=== PATIENT | male | born 1960 | race African-American/Black ===

== ENCOUNTER 2018-04-07 13:09 | Inpatient (IN) ==
[2018-04-07 13:56] LABS: Basophils % 0.3 % (0.0-0.8); Eosinophils % 0.3 % (0.00-10.9); Hematocrit 48.7 VOL% (42.0-52.0); Hemoglobin 16.2 GM/DL (14.0-18.0); Immature Granulocytes % 0.2 %; Immature Granulocytes Absolute 0.01 #; Lymphocytes # 1.8 10*3/uL (1.4-4.0); Lymphocytes % 29.8 % (21.2-54.2); Mean Corpuscular HGB Conc 33.3 GM/DL (32-36); Mean Corpuscular Hemoglobin 30 PG (27-34); Mean Corpuscular Volume 89.4 FL (87-102); Mean Platelet Volume 11.7 FL (9.6-12.0); Monocytes # 0.6 10*3/uL (0.11-0.8); Monocytes % 9.4 % (1.7-12.7); Neutrophils # 3.5 10*3/uL (1.4-7.4); Platelet Count 178 T/CUMM (130-400); Red Blood Count 5.45 MC/CUMM (3.8-5.5); Red Cell Distribution Width 13.8 % (9.3-17.3); White Blood Count 5.9 T/CUMM (4-12)
[2018-04-07 13:57] LABS: INR 0.9; Partial Thromboplastin Time 23.1 SECS (0-40)
[2018-04-07 14:08] LABS: Albumin 4.1 G/DL (3.4-5.0); Bilirubin,Total 0.9 MG/DL (0.2-1.0); Calcium 9.2 MG/DL (8.5-10.1); Osmolality,Calculated 283.4 MOS/KG (273-304); Potassium 3.7 MMOL/L (3.5-5.1); Total Protein 7.5 G/DL (6.4-8.3)
[2018-04-07 15:40] LABS: Barbiturates Screen,Urine Negative (Negative); Benzodiazepines Screen,Urine Negative (Negative); Cannabinoid Screen,Urine Negative (Negative); Opiate Screen,Urine Negative (Negative); Phencyclidine Screen,Urine Negative (Negative)
[2018-04-07 15:41] LABS: Amorphous Crystals,Urine Occasional /HPF (Few); Apearance,Urine CLOUDY (Clear); Bilirubin,Urine Negative (Negative); Blood, Urine Negative (Negative); Glucose,Urine (UA) Negative (Negative); Ketones,Urine Negative (Negative); Mucus,Urine Occasional /LPF (Occasional); Nitrite,Urine Negative (Negative); Protein,Urine Negative; RBC,Urine 2 /HPF (0-4); Squamous Epithelial Cell,Urine Occasional /HPF (0-10); Urine Color Yellow (Yellow); Urine Specific Gravity 1.017 (1.001-1.035); Urine Urobilinogen < 2.0 EU/DL (0.2-1.0); WBC,Urine 9 /HPF (0-6)
[2018-04-07] MEDS ORDERED: LABETALOL 100 MG/20 ML VIAL IV PRN (16:53)
[2018-04-07] MEDS ORDERED: ONDANSETRON 4 MG/2 ML VIAL IV PRN (16:53)
[2018-04-07] MEDS ORDERED: ACETAMINOPHEN 325 MG TABLET PO PRN (16:53)
[2018-04-07] MEDS ORDERED: DEXTROSE 50% 25 GM/50 ML VIAL IV PRN (16:58)
[2018-04-07] MEDS ORDERED: GLUCAGON 1 MG VIAL IM PRN (16:58)
[2018-04-07] MEDS ORDERED: amLODIPine 5 MG TABLET PO STA (17:03)
[2018-04-07] MEDS ORDERED: NICOTINE 7 MG/24 HR PATCH TRANSDERM PRN (17:24)
[2018-04-07] MEDS: SODIUM CHLORIDE 0.9% 1,000 ML IV SCH (20:38)
[2018-04-07] MEDS: ROSUVASTATIN 20 MG TABLET PO SCH (21:25)
[2018-04-07] MEDS: ENOXAPARIN 40 MG/0.4 ML SYRINGE SUBCUT SCH (21:25)
[2018-04-07] MEDS: INSULIN REGULAR 100 UNIT/ML SUBCUT SCH (21:25)
[2018-04-07] MEDS: ASPIRIN 325 MG TABLET PO SCH (21:25)
[2018-04-08 06:53] LABS: Basophils % 0.6 % (0.0-0.8); Eosinophils # 0.1 10*3/uL (0.0-0.87); Eosinophils % 1.2 % (0.00-10.9); Hematocrit 42.6 VOL% (42.0-52.0); Hemoglobin 14.4 GM/DL (14.0-18.0); Immature Granulocytes % 0.2 %; Immature Granulocytes Absolute 0.01 #; Lymphocytes % 38.9 % (21.2-54.2); Mean Corpuscular HGB Conc 33.8 GM/DL (32-36); Mean Corpuscular Hemoglobin 30 PG (27-34); Mean Corpuscular Volume 87.5 FL (87-102); Mean Platelet Volume 12.3 FL (9.6-12.0); Monocytes # 0.7 10*3/uL (0.11-0.8); Monocytes % 14.1 % (1.7-12.7); Neutrophils # 2.3 10*3/uL (1.4-7.4); Platelet Count 160 T/CUMM (130-400); Red Blood Count 4.87 MC/CUMM (3.8-5.5); Red Cell Distribution Width 13.7 % (9.3-17.3)
[2018-04-08 07:20] LABS: Calcium 8.3 MG/DL (8.5-10.1); Osmolality,Calculated 282.1 MOS/KG (273-304); Potassium 2.9 MMOL/L (3.5-5.1); Risk Ratio 3.38; Thyroid Stimulating Hormone 0.564 uIU/ml (0.358-3.74); VLDL CHOLESTEROL 12.6 MG/DL
[2018-04-08] MEDS: INSULIN REGULAR 100 UNIT/ML SUBCUT SCH ×2 (07:47→12:04)
[2018-04-08] MEDS: ASPIRIN 325 MG TABLET PO SCH (08:27)
[2018-04-08] MEDS: SODIUM CHLORIDE 0.9% 1,000 ML IV SCH ×3 (08:27→14:03)
[2018-04-08] MEDS ORDERED: amLODIPine 5 MG TABLET PO SCH (09:00)
[2018-04-08] MEDS ORDERED: POTASSIUM CHLORIDE 20 MEQ TABLET PO ONE ×2 (09:21→11:09)
[2018-04-08] MEDS: amLODIPine 10 MG TABLET PO SCH (10:25)
[2018-04-08] MEDS: POTASSIUM CHLORIDE 20 MEQ TABLET PO PRN ×3 (10:26→14:05)
[2018-04-08] MEDS ORDERED: MAGNESIUM HYDROXIDE SUSP 30 ML UDCUP PO ONE (11:12)
[2018-04-08] MEDS ORDERED: LABETALOL 20 MG/4 ML SYRINGE IV PRN (11:14)
[2018-04-08] MEDS: TAMSULOSIN 0.4 MG CAPSULE PO SCH (12:04)
[2018-04-08] MEDS: cefTRIAXone 1,000 MG in SYRINGE 1 EACH IV SCH (12:07)
[2018-04-08 13:20] LABS: HIV Antigen/Antibody Result Nonreactive (Nonreactive)
[2018-04-08 14:27] LABS: Barbiturates Screen,Urine Negative (Negative); Benzodiazepines Screen,Urine Negative (Negative); Cannabinoid Screen,Urine Negative (Negative); Opiate Screen,Urine Negative (Negative); Phencyclidine Screen,Urine Negative (Negative)
[2018-04-08] MEDS ORDERED: LORazepam 0.5 MG TABLET PO PRN (14:42)
[2018-04-08] MEDS: CARVEDILOL 3.125 MG TABLET PO SCH ×2 (15:43→20:38)
[2018-04-08] MEDS: ROSUVASTATIN 20 MG TABLET PO SCH (20:38)
[2018-04-08] MEDS: ENOXAPARIN 40 MG/0.4 ML SYRINGE SUBCUT SCH (20:41)
[2018-04-09 05:55] LABS: Calcium 8.6 MG/DL (8.5-10.1); Osmolality,Calculated 276.5 MOS/KG (273-304)
[2018-04-09] MEDS: TAMSULOSIN 0.4 MG CAPSULE PO SCH (08:32)
[2018-04-09] MEDS: ASPIRIN 325 MG TABLET PO SCH (08:32)
[2018-04-09] MEDS: CARVEDILOL 3.125 MG TABLET PO SCH (08:32)
[2018-04-09] MEDS: amLODIPine 10 MG TABLET PO SCH (08:32)
[2018-04-09] MEDS: cefTRIAXone 1,000 MG in SYRINGE 1 EACH IV SCH (12:30)
[2018-04-09 13:39] VITALS: BP 158/103
[2018-04-09] MEDS ORDERED: hydrALAZINE 25 MG TABLET PO SCH (15:00)
== END 2018-04-09 13:41 | disposition home or self-care (01) | DRG 65 ==
LOC: N.4E 13:09 → N.ED 13:09 → N.4E 18:11
PROVIDERS: ADMIT Internal Medicine; ATTEND Internal Medicine

== ENCOUNTER 2019-10-02 13:32 | Inpatient (IN) ==
[2019-10-02] MEDS ORDERED: LABETALOL 20 MG/4 ML SYRINGE IV ONE (14:27)
[2019-10-02 14:29] LABS: Basophils % 0.5 % (0.0-0.8); Eosinophils % 0.9 % (0.00-10.9); Hemoglobin 14.3 GM/DL (14.0-18.0); Lymphocytes # 1.2 10*3/uL (1.4-4.0); Lymphocytes % 28.1 % (21.2-54.2); Mean Corpuscular HGB Conc 31.8 GM/DL (32-36); Mean Corpuscular Volume 92.2 FL (87-102); Mean Platelet Volume 10.8 FL (9.6-12.0); Monocytes % 15.7 % (1.7-12.7); Neutrophils % 54.8 % (38.7-73.9); Platelet Count 155 T/CUMM (130-400); Red Blood Count 4.88 MC/CUMM (3.8-5.5); Red Cell Distribution Width 14.6 % (9.3-17.3); White Blood Count 4.3 T/CUMM (4-12)
[2019-10-02 14:39] LABS: INR 0.9; PT Patient Result 10.2 SECS (9.6-12.2)
[2019-10-02 14:49] LABS: Albumin 3.8 G/DL (3.4-5.0); Bilirubin,Total 0.6 MG/DL (0.2-1.0); Calcium 9.4 MG/DL (8.5-10.1); Osmolality,Calculated 275.7 MOS/KG (273-304); Total Protein 6.8 G/DL (6.4-8.3)
[2019-10-02 15:05] LABS: Band Neutrophils 1 % (0-10); Lymphocytes 31 % (20-55); Platelet Estimate Normal; Segmented Neutrophils 54 % (50-85); Total Cells Counted 100
[2019-10-02 15:12] LABS: Apearance,Urine Slightly Hazy (Clear); Bilirubin,Urine Negative (Negative); Blood, Urine Negative (Negative); Glucose,Urine (UA) Negative (Negative); Hyaline Casts,Urine 1 /LPF (0-3); Ketones,Urine 5 mg/dL (Negative); Mucus,Urine Occasional /LPF (Occasional); Nitrite,Urine Negative (Negative); Protein,Urine Negative; RBC,Urine 4 /HPF (0-4); Squamous Epithelial Cell,Urine Occasional /HPF (0-10); Urine Color Yellow (Yellow); Urine Specific Gravity 1.012 (1.001-1.035); WBC,Urine 26 /HPF (0-6)
[2019-10-02 15:27] LABS: Sedimentation Rate-Westergren 3 MM/HR (0-20)
[2019-10-02] MEDS ORDERED: hydrALAZINE 20 MG/1 ML VIAL ONE (15:28)
[2019-10-02 15:30] LABS: Barbiturates Screen,Urine Negative (Negative); Benzodiazepines Screen,Urine Negative (Negative); Cannabinoid Screen,Urine Positive (Negative); Opiate Screen,Urine Negative (Negative); Phencyclidine Screen,Urine Negative (Negative)
[2019-10-02] MEDS ORDERED: LABETALOL 20 MG/4 ML SYRINGE IV STA ×2 (15:31)
[2019-10-02] MEDS ORDERED: hydrALAZINE 20 MG/1 ML VIAL IV STA (15:32)
[2019-10-02] MEDS ORDERED: ONDANSETRON 4 MG/2 ML VIAL IV PRN (17:06)
[2019-10-02] MEDS ORDERED: SODIUM CHLORIDE 0.9% 250 ML IV ONE (20:37)
[2019-10-02] MEDS: MIRTAZAPINE 15 MG TABLET PO SCH (21:43)
[2019-10-02] MEDS: HydrOXYzine PAMOATE 50 MG CAPSULE PO SCH (21:43)
[2019-10-02] MEDS: cefTRIAXone 1,000 MG in SYRINGE 1 EACH IV SCH (21:45)
[2019-10-03 04:15] LABS: Basophils % 0.6 % (0.0-0.8); Eosinophils # 0.1 10*3/uL (0.0-0.87); Eosinophils % 1.5 % (0.00-10.9); Hematocrit 45.3 VOL% (42.0-52.0); Hemoglobin 14.2 GM/DL (14.0-18.0); Immature Granulocytes % 0.2 %; Immature Granulocytes Absolute 0.01 #; Lymphocytes # 1.7 10*3/uL (1.4-4.0); Lymphocytes % 35.4 % (21.2-54.2); Mean Corpuscular HGB Conc 31.3 GM/DL (32-36); Mean Corpuscular Volume 92.1 FL (87-102); Mean Platelet Volume 11.6 FL (9.6-12.0); Monocytes % 17.3 % (1.7-12.7); Platelet Count 155 T/CUMM (130-400); Red Blood Count 4.92 MC/CUMM (3.8-5.5); Red Cell Distribution Width 14.5 % (9.3-17.3); White Blood Count 4.7 T/CUMM (4-12)
[2019-10-03 04:38] LABS: Eosinophils 2 % (0-10); Lymphocytes 34 % (20-55); Segmented Neutrophils 46 % (50-85); Total Cells Counted 100
[2019-10-03 04:39] LABS: Hypochromasia 1+; Ovalocytes Slight; Platelet Estimate Adequate
[2019-10-03 04:52] LABS: Osmolality,Calculated 276.5 MOS/KG (273-304); Thyroid Stimulating Hormone 0.156 uIU/ml (0.358-3.74)
[2019-10-03 04:55] LABS: Risk Ratio 2.77; VLDL CHOLESTEROL 11.2 MG/DL
[2019-10-03] MEDS ORDERED: POTASSIUM CHLORIDE 20 MEQ TABLET PO ONE (07:39)
[2019-10-03 08:04] LABS: Free T4 (Free Thyroxine) 1.06 NG/DL (0.76-1.46)
[2019-10-03] MEDS: ASPIRIN EC 81 MG TABLET PO SCH (09:16)
[2019-10-03] MEDS: HydrOXYzine PAMOATE 50 MG CAPSULE PO SCH ×2 (09:16→20:34)
[2019-10-03] MEDS: PANTOPRAZOLE 40 MG TABLET PO SCH (09:16)
[2019-10-03] MEDS: VENLAFAXINE XR 75 MG CAPSULE PO SCH (09:16)
[2019-10-03] MEDS: amLODIPine 10 MG TABLET PO SCH (14:21)
[2019-10-03] MEDS: LOSARTAN 50 MG TABLET PO SCH ×2 (14:21→20:34)
[2019-10-03] MEDS: APIXABAN 5 MG TABLET PO SCH ×2 (14:21→20:34)
[2019-10-03] MEDS ORDERED: NICOTINE 21 MG/24 HR PATCH TRANSDERM PRN (15:13)
[2019-10-03] MEDS: hydrALAZINE 20 MG/1 ML VIAL IV PRN (16:57)
[2019-10-03] MEDS: ROSUVASTATIN 20 MG TABLET PO SCH (20:34)
[2019-10-03] MEDS: cefTRIAXone 1,000 MG in SYRINGE 1 EACH IV SCH (20:34)
[2019-10-03] MEDS: MIRTAZAPINE 15 MG TABLET PO SCH (20:34)
[2019-10-03] MEDS ORDERED: carvediloL 3.125 MG TABLET PO SCH (21:00)
[2019-10-04 04:16] LABS: Basophils % 0.5 % (0.0-0.8); Eosinophils # 0.1 10*3/uL (0.0-0.87); Eosinophils % 1.6 % (0.00-10.9); Hematocrit 47.7 VOL% (42.0-52.0); Hemoglobin 15.6 GM/DL (14.0-18.0); Immature Granulocytes % 0.2 %; Immature Granulocytes Absolute 0.01 #; Lymphocytes # 1.1 10*3/uL (1.4-4.0); Lymphocytes % 24.6 % (21.2-54.2); Mean Corpuscular HGB Conc 32.7 GM/DL (32-36); Mean Corpuscular Volume 89.8 FL (87-102); Mean Platelet Volume 12.1 FL (9.6-12.0); Monocytes % 15.1 % (1.7-12.7); Platelet Count 167 T/CUMM (130-400); Red Blood Count 5.31 MC/CUMM (3.8-5.5); Red Cell Distribution Width 14.7 % (9.3-17.3); White Blood Count 4.3 T/CUMM (4-12)
[2019-10-04 04:29] LABS: Osmolality,Calculated 274.7 MOS/KG (273-304)
[2019-10-04] MEDS: LOSARTAN 50 MG TABLET PO SCH ×2 (08:49→20:32)
[2019-10-04] MEDS: HydrOXYzine PAMOATE 50 MG CAPSULE PO SCH ×2 (08:49→20:32)
[2019-10-04] MEDS: amLODIPine 10 MG TABLET PO SCH (08:49)
[2019-10-04] MEDS: ASPIRIN EC 81 MG TABLET PO SCH (08:49)
[2019-10-04] MEDS: VENLAFAXINE XR 75 MG CAPSULE PO SCH (08:49)
[2019-10-04] MEDS: PANTOPRAZOLE 40 MG TABLET PO SCH (08:50)
[2019-10-04] MEDS: hydrALAZINE 20 MG/1 ML VIAL IV PRN (08:50)
[2019-10-04] MEDS: carvediloL 3.125 MG TABLET PO SCH ×2 (08:50→20:32)
[2019-10-04] MEDS: APIXABAN 5 MG TABLET PO SCH ×2 (13:36→20:32)
[2019-10-04] MEDS: cefTRIAXone 1,000 MG in SYRINGE 1 EACH IV SCH (20:32)
[2019-10-04] MEDS: MIRTAZAPINE 15 MG TABLET PO SCH (20:32)
[2019-10-04] MEDS: ROSUVASTATIN 20 MG TABLET PO SCH (20:32)
[2019-10-05 05:20] LABS: Basophils % 0.4 % (0.0-0.8); Eosinophils # 0.1 10*3/uL (0.0-0.87); Eosinophils % 1.5 % (0.00-10.9); Hematocrit 48.9 VOL% (42.0-52.0); Hemoglobin 15.7 GM/DL (14.0-18.0); Lymphocytes # 1.8 10*3/uL (1.4-4.0); Lymphocytes % 37.8 % (21.2-54.2); Mean Corpuscular HGB Conc 32.1 GM/DL (32-36); Mean Corpuscular Volume 91.2 FL (87-102); Mean Platelet Volume 12.1 FL (9.6-12.0); Monocytes % 15.1 % (1.7-12.7); Neutrophils % 45.2 % (38.7-73.9); Platelet Count 183 T/CUMM (130-400); Red Blood Count 5.36 MC/CUMM (3.8-5.5); White Blood Count 4.7 T/CUMM (4-12)
[2019-10-05 05:54] LABS: Osmolality,Calculated 278.7 MOS/KG (273-304)
[2019-10-05] MEDS: APIXABAN 5 MG TABLET PO SCH (09:01)
[2019-10-05] MEDS: VENLAFAXINE XR 75 MG CAPSULE PO SCH (09:01)
[2019-10-05] MEDS: carvediloL 3.125 MG TABLET PO SCH (09:02)
[2019-10-05] MEDS: PANTOPRAZOLE 40 MG TABLET PO SCH (09:02)
[2019-10-05] MEDS: LOSARTAN 50 MG TABLET PO SCH (09:02)
[2019-10-05] MEDS: ASPIRIN EC 81 MG TABLET PO SCH (09:02)
[2019-10-05] MEDS: amLODIPine 10 MG TABLET PO SCH (09:02)
[2019-10-05] MEDS: HydrOXYzine PAMOATE 50 MG CAPSULE PO SCH (09:03)
[2019-10-05 12:37] VITALS: BP 139/94
== END 2019-10-05 15:20 | DRG 45 ==
LOC: EDUNIT# → EDBD → N.ED 13:32 → N.EDINP 16:40 → SUATTDRO 16:40 → N.4E 18:30
PROVIDERS: ADMIT Internal Medicine; ATTEND Internal Medicine

== ENCOUNTER 2021-06-14 20:28 | Inpatient (IN) ==
[2021-06-14] MEDS ORDERED: SODIUM CHLORIDE 0.9% 1,000 ML IV STA (22:06)
[2021-06-14 22:51] LABS: Basophils % 0.3 % (0.0-0.8); Eosinophils % 0.2 % (0.00-10.9); Hematocrit 45.4 VOL% (42.0-52.0); Hemoglobin 13.9 GM/DL (14.0-18.0); Immature Granulocytes % 0.2 %; Immature Granulocytes Absolute 0.02 #; Lymphocytes # 2.9 10*3/uL (1.4-4.0); Lymphocytes % 28.3 % (21.2-54.2); Mean Corpuscular HGB Conc 30.6 GM/DL (32-36); Mean Corpuscular Volume 82.7 FL (87-102); Mean Platelet Volume 10.6 FL (9.6-12.0); Monocytes % 12.9 % (1.7-12.7); Neutrophils % 58.1 % (38.7-73.9); Platelet Count 217 T/CUMM (130-400); Red Blood Count 5.49 MC/CUMM (3.8-5.5); Red Cell Distribution Width 17.8 % (9.3-17.3); White Blood Count 10.4 T/CUMM (4-12)
[2021-06-14 23:03] LABS: Bilirubin,Urine Negative (Negative); Blood, Urine Negative (Negative); Glucose,Urine (UA) Negative (Negative); Ketones,Urine 20 mg/dL (Negative); Mucus,Urine Occasional /LPF (Occasional); Nitrite,Urine Negative (Negative); Protein,Urine 30 MG/DL; Squamous Epithelial Cell,Urine Occasional /HPF (0-10); Urine Appearance CLOUDY (Clear); Urine Color Yellow (Yellow); Urine Specific Gravity 1.017 (1.001-1.035); Urine Urobilinogen < 2.0 EU/DL (0.2-1.0)
[2021-06-14 23:11] LABS: Albumin 3.5 G/DL (3.4-5.0); Bilirubin,Total 0.6 MG/DL (0.20-1.00); Osmolality,Calculated 273.1 MOS/KG (273-304); Potassium 3.3 MMOL/L (3.5-5.1); Total Protein 6.8 G/DL (6.4-8.2)
[2021-06-14] MEDS ORDERED: cefTRIAXone 1,000 MG in SODIUM CHLORIDE 0.9% 100 ML IV STA (23:11)
[2021-06-15] MEDS ORDERED: LACTATED RINGERS 1,000 ML IV ONE (00:23)
[2021-06-15] MEDS ORDERED: GLUCAGON 1 MG VIAL IM PRN (02:55)
[2021-06-15] MEDS ORDERED: hydrALAZINE 20 MG/1 ML VIAL IV PRN (02:55)
[2021-06-15] MEDS ORDERED: DEXTROSE 50% 25 GM/50 ML VIAL IV PRN (02:55)
[2021-06-15] MEDS ORDERED: MAGNESIUM SULF RIDER 2 GM/50 ML PREMIX IV ONE (02:55)
[2021-06-15] MEDS: SODIUM CHLORIDE 0.9% 1,000 ML IV SCH ×2 (03:39→15:04)
[2021-06-15 04:25] LABS: Basophils % 0.2 % (0.0-0.8); Eosinophils % 0.2 % (0.00-10.9); Hematocrit 41.8 VOL% (42.0-52.0); Hemoglobin 12.8 GM/DL (14.0-18.0); Immature Granulocytes % 0.4 %; Immature Granulocytes Absolute 0.03 #; Mean Corpuscular HGB Conc 30.6 GM/DL (32-36); Mean Corpuscular Volume 83.3 FL (87-102); Monocytes % 11.1 % (1.7-12.7); Neutrophils % 64.1 % (38.7-73.9); Platelet Count 223 T/CUMM (130-400); Red Blood Count 5.02 MC/CUMM (3.8-5.5); Red Cell Distribution Width 17.7 % (9.3-17.3); White Blood Count 8.1 T/CUMM (4-12)
[2021-06-15 04:47] LABS: Albumin 2.9 G/DL (3.4-5.0); Bilirubin,Total 0.8 MG/DL (0.20-1.00); Calcium 8.4 MG/DL (8.5-10.1); Osmolality,Calculated 273.8 MOS/KG (273-304); Total Protein 6.3 G/DL (6.4-8.2)
[2021-06-15] MEDS: INSULIN LISPRO 100 UNIT/ML SUBCUT SCH ×4 (07:27→21:07)
[2021-06-15] MEDS ORDERED: PANTOPRAZOLE 40 MG VIAL IV ONE (07:57)
[2021-06-15] MEDS: ONDANSETRON 4 MG/2 ML VIAL IV PRN ×3 (08:03→22:45)
[2021-06-15 09:04] LABS: % Iron Saturation 25.8 % (18-50); Ferritin 17.6 ng/mL (26-388)
[2021-06-15] MEDS: PANTOPRAZOLE 40 MG VIAL IV SCH ×2 (10:00→21:19)
[2021-06-15] MEDS: POLYETHYLENE GLYCOL POWDER 17 GM PACK PO SCH (10:06)
[2021-06-15] MEDS: APIXABAN 5 MG TABLET PO SCH ×2 (10:06→21:20)
[2021-06-15 10:17] LABS: Folate 7.5 NG/ML (5.38-24.0)
[2021-06-15] MEDS ORDERED: PROMETHAZINE INJ 25 MG in SODIUM CHLORIDE 0.9% 50 ML IV STA (10:56)
[2021-06-15] MEDS ORDERED: PROMETHAZINE 25 MG/1 ML VIAL IM PRN (10:57)
[2021-06-15] MEDS: carvediloL 6.25 MG TABLET PO SCH ×2 (15:26→21:20)
[2021-06-15] MEDS: LOSARTAN 50 MG TABLET PO SCH (15:26)
[2021-06-15] MEDS: amLODIPine 10 MG TABLET PO SCH (15:27)
[2021-06-15] MEDS: FINASTERIDE 5 MG TABLET PO SCH (21:20)
[2021-06-15] MEDS: FERROUS SULFATE 325 MG TABLET PO SCH (21:20)
[2021-06-15] MEDS: TAMSULOSIN 0.4 MG CAPSULE PO SCH (21:20)
[2021-06-15] MEDS: ROSUVASTATIN 20 MG TABLET PO SCH (21:20)
[2021-06-15] MEDS: MIRTAZAPINE 15 MG TABLET PO SCH (21:20)
[2021-06-15] MEDS: cefTRIAXone 1,000 MG in SODIUM CHLORIDE 0.9% 100 ML IV SCH (22:45)
[2021-06-16] MEDS: SODIUM CHLORIDE 0.9% 1,000 ML IV SCH ×2 (02:45→10:46)
[2021-06-16] MEDS: APIXABAN 5 MG TABLET PO SCH ×2 (08:21→21:17)
[2021-06-16] MEDS: carvediloL 6.25 MG TABLET PO SCH ×2 (08:21→21:17)
[2021-06-16] MEDS: ONDANSETRON 4 MG/2 ML VIAL IV PRN ×2 (08:21→22:25)
[2021-06-16] MEDS: PANTOPRAZOLE 40 MG VIAL IV SCH ×2 (08:21→21:17)
[2021-06-16] MEDS: FERROUS SULFATE 325 MG TABLET PO SCH ×2 (08:21→21:17)
[2021-06-16] MEDS: amLODIPine 10 MG TABLET PO SCH (08:21)
[2021-06-16] MEDS: LOSARTAN 50 MG TABLET PO SCH (08:21)
[2021-06-16] MEDS: POLYETHYLENE GLYCOL POWDER 17 GM PACK PO SCH (08:21)
[2021-06-16] MEDS: INSULIN LISPRO 100 UNIT/ML SUBCUT SCH ×4 (08:22→22:12)
[2021-06-16] MEDS: POTASSIUM CHLORIDE RIDER 10 MEQ/100 ML PREMIX IV PRN ×6 (12:40→23:45)
[2021-06-16] MEDS: ACETAMINOPHEN 325 MG TABLET PO PRN (12:40)
[2021-06-16] MEDS: ROSUVASTATIN 20 MG TABLET PO SCH (21:17)
[2021-06-16] MEDS: MIRTAZAPINE 15 MG TABLET PO SCH (21:17)
[2021-06-16] MEDS: cefTRIAXone 1,000 MG in SODIUM CHLORIDE 0.9% 100 ML IV SCH (21:17)
[2021-06-16] MEDS: TAMSULOSIN 0.4 MG CAPSULE PO SCH (21:17)
[2021-06-16] MEDS: FINASTERIDE 5 MG TABLET PO SCH (21:17)
[2021-06-17] MEDS: POTASSIUM CHLORIDE RIDER 10 MEQ/100 ML PREMIX IV PRN ×5 (02:10→18:10)
[2021-06-17 05:54] LABS: Basophils % 0.5 % (0.0-0.8); Eosinophils # 0.1 10*3/uL (0.0-0.87); Eosinophils % 1.2 % (0.00-10.9); Hematocrit 37.6 VOL% (42.0-52.0); Hemoglobin 11.5 GM/DL (14.0-18.0); Immature Granulocytes % 0.4 %; Immature Granulocytes Absolute 0.02 #; Lymphocytes # 1.5 10*3/uL (1.4-4.0); Lymphocytes % 26.3 % (21.2-54.2); Mean Corpuscular HGB Conc 30.6 GM/DL (32-36); Mean Corpuscular Volume 83.9 FL (87-102); Monocytes % 11.1 % (1.7-12.7); Neutrophils % 60.5 % (38.7-73.9); Platelet Count 182 T/CUMM (130-400); Red Blood Count 4.48 MC/CUMM (3.8-5.5); Red Cell Distribution Width 16.8 % (9.3-17.3); White Blood Count 5.7 T/CUMM (4-12)
[2021-06-17 06:16] LABS: Calcium 8.2 MG/DL (8.5-10.1); Osmolality,Calculated 276.4 MOS/KG (273-304); Potassium 3.8 MMOL/L (3.5-5.1)
[2021-06-17] MEDS: INSULIN LISPRO 100 UNIT/ML SUBCUT SCH ×4 (07:36→21:01)
[2021-06-17] MEDS: amLODIPine 10 MG TABLET PO SCH (10:59)
[2021-06-17] MEDS: LOSARTAN 50 MG TABLET PO SCH (10:59)
[2021-06-17] MEDS: PANTOPRAZOLE 40 MG VIAL IV SCH ×2 (10:59→21:01)
[2021-06-17] MEDS: carvediloL 6.25 MG TABLET PO SCH ×2 (10:59→21:01)
[2021-06-17] MEDS ORDERED: TUBERCULIN SKIN TEST 0.1 ML SYRINGE INTRADERM ONE (13:30)
[2021-06-17] MEDS ORDERED: propofoL 200 MG/20 ML VIAL IV ONE (13:49)
[2021-06-17] MEDS ORDERED: LIDOCAINE 2% 5 ML VIAL ONE (13:49)
[2021-06-17] MEDS ORDERED: PHENYLEPHRINE 1 MG/10 ML SYRINGE IV ONE (14:03)
[2021-06-17] MEDS: POLYETHYLENE GLYCOL POWDER 17 GM PACK PO SCH (15:48)
[2021-06-17] MEDS: FERROUS SULFATE 325 MG TABLET PO SCH ×2 (15:48→21:01)
[2021-06-17] MEDS: APIXABAN 5 MG TABLET PO SCH ×2 (15:48→21:01)
[2021-06-17] MEDS: ONDANSETRON 4 MG/2 ML VIAL IV PRN ×2 (15:56→22:55)
[2021-06-17] MEDS: CETIRIZINE 10 MG TABLET PO SCH (15:56)
[2021-06-17] MEDS: FINASTERIDE 5 MG TABLET PO SCH (21:00)
[2021-06-17] MEDS: MIRTAZAPINE 15 MG TABLET PO SCH (21:01)
[2021-06-17] MEDS: ROSUVASTATIN 20 MG TABLET PO SCH (21:01)
[2021-06-17] MEDS: TAMSULOSIN 0.4 MG CAPSULE PO SCH (21:01)
[2021-06-17] MEDS: cefTRIAXone 1,000 MG in SODIUM CHLORIDE 0.9% 100 ML IV SCH (22:55)
[2021-06-18 06:05] LABS: Basophils % 0.3 % (0.0-0.8); Eosinophils # 0.1 10*3/uL (0.0-0.87); Eosinophils % 1.6 % (0.00-10.9); Hematocrit 37.1 VOL% (42.0-52.0); Hemoglobin 11.4 GM/DL (14.0-18.0); Immature Granulocytes % 0.5 %; Immature Granulocytes Absolute 0.03 #; Lymphocytes # 1.7 10*3/uL (1.4-4.0); Lymphocytes % 25.7 % (21.2-54.2); Mean Corpuscular HGB Conc 30.7 GM/DL (32-36); Mean Corpuscular Volume 82.6 FL (87-102); Monocytes % 9.7 % (1.7-12.7); Neutrophils % 62.2 % (38.7-73.9); Platelet Count 222 T/CUMM (130-400); Red Blood Count 4.49 MC/CUMM (3.8-5.5); Red Cell Distribution Width 16.6 % (9.3-17.3); White Blood Count 6.4 T/CUMM (4-12)
[2021-06-18 06:14] LABS: Calcium 8.2 MG/DL (8.5-10.1); Osmolality,Calculated 278.3 MOS/KG (273-304); Potassium 3.6 MMOL/L (3.5-5.1)
[2021-06-18] MEDS: INSULIN LISPRO 100 UNIT/ML SUBCUT SCH ×2 (08:28→11:22)
[2021-06-18] MEDS: CETIRIZINE 10 MG TABLET PO SCH (09:37)
[2021-06-18] MEDS: LOSARTAN 50 MG TABLET PO SCH (09:37)
[2021-06-18] MEDS: amLODIPine 10 MG TABLET PO SCH (09:37)
[2021-06-18] MEDS: FERROUS SULFATE 325 MG TABLET PO SCH (09:37)
[2021-06-18] MEDS: carvediloL 6.25 MG TABLET PO SCH (09:38)
[2021-06-18] MEDS: POLYETHYLENE GLYCOL POWDER 17 GM PACK PO SCH (09:40)
[2021-06-18] MEDS: ACETAMINOPHEN 325 MG TABLET PO PRN (10:06)
[2021-06-18] MEDS: PANTOPRAZOLE 40 MG VIAL IV SCH (10:07)
[2021-06-18 11:41] VITALS: BP 113/79
== END 2021-06-18 15:10 | DRG 243 ==
LOC: N.ED 20:28 → N.EDINP 20:28 → N.3E 06-15 15:41 → SUATTDRO 06-15 16:12
PROVIDERS: ADMIT Internal Medicine; ATTEND Internal Medicine

== ENCOUNTER 2022-04-16 04:49 | Inpatient (IN) ==
[2022-04-16] MEDS ORDERED: ONDANSETRON 4 MG/2 ML VIAL IV STA (05:03)
[2022-04-16] MEDS ORDERED: PANTOPRAZOLE 40 MG VIAL IV STA (05:03)
[2022-04-16] MEDS ORDERED: SODIUM CHLORIDE 0.9% 500 ML IV STA (05:03)
[2022-04-16 05:17] LABS: Basophils % 0.4 % (0.0-0.8); Eosinophils # 0.1 10*3/uL (0.0-0.87); Eosinophils % 0.5 % (0.00-10.9); Hematocrit 50.9 VOL% (42.0-52.0); Hemoglobin 16.3 GM/DL (14.0-18.0); Immature Granulocytes % 0.3 %; Immature Granulocytes Absolute 0.03 #; Lymphocytes # 1.8 10*3/uL (1.4-4.0); Lymphocytes % 19.5 % (21.2-54.2); Mean Corpuscular Volume 87.5 FL (87-102); Monocytes # 0.8 10*3/uL (0.11-0.8); Monocytes % 8.7 % (1.7-12.7); Neutrophils % 70.6 % (38.7-73.9); Platelet Count 177 T/CUMM (130-400); Red Blood Count 5.82 MC/CUMM (3.8-5.5); Red Cell Distribution Width 20.1 % (9.3-17.3); White Blood Count 9.3 T/CUMM (4-12)
[2022-04-16 05:22] LABS: PT Patient Result 10.9 SECS (10.1-12.1)
[2022-04-16 05:39] LABS: Alanine Aminotransferase 26 U/L (16-61); Albumin 3.7 G/DL (3.4-5.0); Alkaline Phosphatase 69 U/L (45-117); Amylase 91 U/L (25-115); Aspartate Amino Transferase 11 U/L (0-37); Bilirubin,Total < 0.39 MG/DL (0.20-1.00); Blood Urea Nitrogen 17 MG/DL (7-18); Calcium 9.4 MG/DL (8.5-10.1); Carbon Dioxide 24 MMOL/L (21-32); Chloride 105 MMOL/L (98-107); Glucose 166 MG/DL (74-106); Osmolality,Calculated 280.7 MOS/KG (273-304); Potassium 3.8 MMOL/L (3.5-5.1); Sodium 138 MMOL/L (136-145); Total Protein 7.3 G/DL (6.4-8.2)
[2022-04-16] MEDS ORDERED: ACETAMINOPHEN 325 MG TABLET PO PRN (05:40)
[2022-04-16] MEDS ORDERED: GLUCAGON 1 MG VIAL IM PRN (05:40)
[2022-04-16] MEDS ORDERED: ONDANSETRON 4 MG/2 ML VIAL IV PRN (05:40)
[2022-04-16 05:45] LABS: Lymphocytes 32 % (20-55); Platelet Estimate Adequate; Total Cells Counted 100
[2022-04-16] MEDS ORDERED: DEXTROSE 10% 250 ML BAG IV PRN (06:13)
[2022-04-16] MEDS: INSULIN REGULAR 100 UNIT/ML SUBCUT SCH ×3 (06:15→18:18)
[2022-04-16] MEDS: SODIUM CHLORIDE 0.9% 1,000 ML IV SCH ×2 (06:15→23:29)
[2022-04-16] MEDS ORDERED: PANTOPRAZOLE 40 MG VIAL IV SCH (09:00)
[2022-04-16] MEDS ORDERED: PANTOPRAZOLE 40 MG TABLET PO SCH (09:00)
[2022-04-16] MEDS: DOCUSATE SODIUM 100 MG CAPSULE PO SCH ×3 (10:00→21:24)
[2022-04-16 10:18] LABS: Bacteria,Urine Occasional /HPF (Few); Bilirubin,Urine Negative (Negative); Blood, Urine Negative (Negative); Glucose,Urine (UA) Negative (Negative); Hyaline Casts,Urine 1 /LPF (0-3); Ketones,Urine 15 mg/dL (Negative); Mucus,Urine Occasional /LPF (Occasional); Nitrite,Urine Negative (Negative); Protein,Urine Negative (Negative); RBC,Urine 2 /HPF (0-4); Urine Appearance Clear (Clear); Urine Color Yellow (Yellow); Urine Urobilinogen 0.2 eU/dL (<2.0); Urine pH 7.5 (4.5-8.0)
[2022-04-16] MEDS: MORPHINE 2 MG/1 ML SYRINGE IV PRN (11:56)
[2022-04-16] MEDS ORDERED: MAGNESIUM HYDROXIDE SUSP 30 ML UDCUP PO PRN (13:40)
[2022-04-16] MEDS ORDERED: cloNIDine 0.1 MG TABLET PO PRN (13:50)
[2022-04-16] MEDS: carvediloL 6.25 MG TABLET PO SCH (16:37)
[2022-04-16] MEDS: VENLAFAXINE XR 37.5 MG CAPSULE PO SCH (16:38)
[2022-04-16] MEDS: traMADol 50 MG TABLET PO PRN ×2 (17:23→21:28)
[2022-04-16] MEDS: TAMSULOSIN 0.4 MG CAPSULE PO SCH (21:23)
[2022-04-16] MEDS: MIRTAZAPINE 15 MG TABLET PO SCH (21:23)
[2022-04-16] MEDS: FINASTERIDE 5 MG TABLET PO SCH (21:23)
[2022-04-16] MEDS: HydrOXYzine PAMOATE 25 MG CAPSULE PO SCH (21:24)
[2022-04-16] MEDS: ROSUVASTATIN 10 MG TABLET PO SCH (21:24)
[2022-04-17] MEDS: INSULIN REGULAR 100 UNIT/ML SUBCUT SCH ×4 (00:02→18:35)
[2022-04-17 06:06] LABS: Alanine Aminotransferase 18 U/L (16-61); Albumin 2.7 G/DL (3.4-5.0); Alkaline Phosphatase 50 U/L (45-117); Aspartate Amino Transferase 8 U/L (0-37); Bilirubin,Total < 0.39 MG/DL (0.20-1.00); Blood Urea Nitrogen 15 MG/DL (7-18); Calcium 8.6 MG/DL (8.5-10.1); Carbon Dioxide 23 MMOL/L (21-32); Chloride 110 MMOL/L (98-107); Cholesterol 108 MG/DL (50-200); Glucose 85 MG/DL (74-106); HDL Cholesterol 34 MG/DL (40-60); Potassium 3.5 MMOL/L (3.5-5.1); Risk Ratio 3.18; Sodium 143 MMOL/L (136-145); Total Protein 5.6 G/DL (6.4-8.2); Triglycerides 86 MG/DL (2-150); VLDL Cholesterol 17.2 MG/DL
[2022-04-17] MEDS: SODIUM CHLORIDE 0.9% 1,000 ML IV SCH ×4 (07:29→20:47)
[2022-04-17] MEDS ORDERED: PANTOPRAZOLE 40 MG VIAL IV SCH (09:00)
[2022-04-17] MEDS: PANTOPRAZOLE 40 MG VIAL IV SCH ×2 (11:00→20:28)
[2022-04-17] MEDS: carvediloL 6.25 MG TABLET PO SCH ×2 (12:10→16:12)
[2022-04-17] MEDS: DOCUSATE SODIUM 100 MG CAPSULE PO SCH ×2 (12:10→20:28)
[2022-04-17] MEDS: ASPIRIN CHEW 81 MG TABLET PO SCH (12:10)
[2022-04-17] MEDS: HydrOXYzine PAMOATE 25 MG CAPSULE PO SCH ×2 (12:11→20:29)
[2022-04-17] MEDS: CETIRIZINE 10 MG TABLET PO SCH (13:00)
[2022-04-17] MEDS: POLYETHYLENE GLYCOL POWDER 17 GM PACK PO SCH (13:00)
[2022-04-17] MEDS: predniSONE 5 MG TABLET PO SCH (13:00)
[2022-04-17] MEDS: VENLAFAXINE XR 75 MG CAPSULE PO SCH (13:00)
[2022-04-17] MEDS: amLODIPine 10 MG TABLET PO SCH (13:00)
[2022-04-17] MEDS: LACTATED RINGERS 1,000 ML IV SCH (13:59)
[2022-04-17] MEDS ORDERED: LIDOCAINE 2% 5 ML VIAL ONE (14:30)
[2022-04-17] MEDS ORDERED: propofoL 200 MG/20 ML VIAL IV ONE (14:30)
[2022-04-17] MEDS ORDERED: DEXTROSE 50% 25 GM/50 ML VIAL IV PRN (15:29)
[2022-04-17] MEDS ORDERED: ALBUTEROL/IPRATROPIUM 3 ML NEB RESP TX ONE (15:33)
[2022-04-17] MEDS: LIDOCAINE 5% PATCH TRANSDERM SCH (15:58)
[2022-04-17] MEDS: traMADol 50 MG TABLET PO PRN ×2 (16:11→20:29)
[2022-04-17] MEDS: VENLAFAXINE XR 37.5 MG CAPSULE PO SCH (16:12)
[2022-04-17] MEDS: ROSUVASTATIN 10 MG TABLET PO SCH (20:28)
[2022-04-17] MEDS: FINASTERIDE 5 MG TABLET PO SCH (20:28)
[2022-04-17] MEDS: MIRTAZAPINE 15 MG TABLET PO SCH (20:28)
[2022-04-17] MEDS: TAMSULOSIN 0.4 MG CAPSULE PO SCH (20:28)
[2022-04-18] MEDS: SODIUM CHLORIDE 0.9% 1,000 ML IV SCH ×4 (05:11→22:08)
[2022-04-18 05:38] LABS: Basophils % 0.6 % (0.0-0.8); Eosinophils # 0.1 10*3/uL (0.0-0.87); Hematocrit 39.4 VOL% (42.0-52.0); Hemoglobin 12.7 GM/DL (14.0-18.0); Immature Granulocytes % 0.2 %; Immature Granulocytes Absolute 0.01 #; Lymphocytes # 1.8 10*3/uL (1.4-4.0); Lymphocytes % 33.4 % (21.2-54.2); Mean Corpuscular HGB Conc 32.2 GM/DL (32-36); Mean Corpuscular Volume 88.1 FL (87-102); Monocytes # 0.6 10*3/uL (0.11-0.8); Monocytes % 11.9 % (1.7-12.7); Neutrophils % 51.9 % (38.7-73.9); Platelet Count 121 T/CUMM (130-400); Red Blood Count 4.47 MC/CUMM (3.8-5.5); Red Cell Distribution Width 19.2 % (9.3-17.3); White Blood Count 5.4 T/CUMM (4-12)
[2022-04-18 05:52] LABS: Calcium 8.4 MG/DL (8.5-10.1); Osmolality,Calculated 279.3 MOS/KG (273-304); Potassium 3.4 MMOL/L (3.5-5.1)
[2022-04-18] MEDS: INSULIN REGULAR 100 UNIT/ML SUBCUT SCH ×4 (06:06→17:31)
[2022-04-18 06:11] LABS: Platelet Estimate Decreased
[2022-04-18] MEDS: carvediloL 6.25 MG TABLET PO SCH ×2 (07:30→17:28)
[2022-04-18] MEDS: traMADol 50 MG TABLET PO PRN ×2 (07:30→19:47)
[2022-04-18] MEDS: PANTOPRAZOLE 40 MG VIAL IV SCH ×2 (08:21→22:06)
[2022-04-18] MEDS: LACTATED RINGERS 1,000 ML IV SCH (08:21)
[2022-04-18] MEDS: predniSONE 5 MG TABLET PO SCH (08:22)
[2022-04-18] MEDS: VENLAFAXINE XR 75 MG CAPSULE PO SCH (08:22)
[2022-04-18] MEDS: ASPIRIN CHEW 81 MG TABLET PO SCH (08:22)
[2022-04-18] MEDS: CETIRIZINE 10 MG TABLET PO SCH (08:22)
[2022-04-18] MEDS: amLODIPine 10 MG TABLET PO SCH (08:22)
[2022-04-18] MEDS: HydrOXYzine PAMOATE 25 MG CAPSULE PO SCH ×2 (08:22→22:05)
[2022-04-18] MEDS: LIDOCAINE 5% PATCH TRANSDERM SCH (08:23)
[2022-04-18] MEDS: DOCUSATE SODIUM 100 MG CAPSULE PO SCH ×2 (08:23→22:06)
[2022-04-18] MEDS: POLYETHYLENE GLYCOL POWDER 17 GM PACK PO SCH (08:24)
[2022-04-18] MEDS ORDERED: POTASSIUM CHLORIDE 20 MEQ TABLET PO ONE (11:00)
[2022-04-18] MEDS: methylPREDNISolone SOD SUC 40 MG/1 ML VIAL IV SCH ×2 (12:14→22:05)
[2022-04-18] MEDS ORDERED: NICOTINE 7 MG/24 HR PATCH TRANSDERM PRN (12:32)
[2022-04-18] MEDS: ALBUTEROL/IPRATROPIUM 3 ML NEB RESP TX SCH ×2 (14:00→19:32)
[2022-04-18] MEDS: AMPICILLIN/SULBACTAM 1,500 MG in SODIUM CHLORIDE 0.9% 100 ML IV SCH ×2 (15:04→22:06)
[2022-04-18] MEDS: VENLAFAXINE XR 37.5 MG CAPSULE PO SCH (15:04)
[2022-04-18] MEDS: FINASTERIDE 5 MG TABLET PO SCH (22:05)
[2022-04-18] MEDS: TAMSULOSIN 0.4 MG CAPSULE PO SCH (22:05)
[2022-04-18] MEDS: ROSUVASTATIN 10 MG TABLET PO SCH (22:05)
[2022-04-18] MEDS: MIRTAZAPINE 15 MG TABLET PO SCH (22:05)
[2022-04-19] MEDS: INSULIN REGULAR 100 UNIT/ML SUBCUT SCH ×4 (00:34→17:31)
[2022-04-19] MEDS: ALBUTEROL/IPRATROPIUM 3 ML NEB RESP TX SCH ×4 (00:40→19:35)
[2022-04-19] MEDS: AMPICILLIN/SULBACTAM 1,500 MG in SODIUM CHLORIDE 0.9% 100 ML IV SCH ×4 (03:14→21:26)
[2022-04-19] MEDS: methylPREDNISolone SOD SUC 40 MG/1 ML VIAL IV SCH ×3 (05:06→21:26)
[2022-04-19] MEDS: SODIUM CHLORIDE 0.9% 1,000 ML IV SCH ×3 (05:07→22:14)
[2022-04-19 05:17] LABS: Basophils % 0.1 % (0.0-0.8); Hematocrit 38.5 VOL% (42.0-52.0); Hemoglobin 12.3 GM/DL (14.0-18.0); Immature Granulocytes % 0.5 %; Immature Granulocytes Absolute 0.05 #; Lymphocytes # 0.8 10*3/uL (1.4-4.0); Lymphocytes % 7.9 % (21.2-54.2); Mean Corpuscular HGB Conc 31.9 GM/DL (32-36); Mean Corpuscular Volume 88.7 FL (87-102); Mean Platelet Volume 11.1 FL (9.6-12.0); Monocytes # 0.3 10*3/uL (0.11-0.8); Monocytes % 2.9 % (1.7-12.7); Neutrophils % 88.6 % (38.7-73.9); Platelet Count 123 T/CUMM (130-400); Red Blood Count 4.34 MC/CUMM (3.8-5.5); Red Cell Distribution Width 18.8 % (9.3-17.3); White Blood Count 9.7 T/CUMM (4-12)
[2022-04-19 05:30] LABS: Calcium 8.5 MG/DL (8.5-10.1); Osmolality,Calculated 285.1 MOS/KG (273-304); Potassium 4.2 MMOL/L (3.5-5.1)
[2022-04-19] MEDS: carvediloL 6.25 MG TABLET PO SCH ×2 (09:00→16:41)
[2022-04-19] MEDS: LACTATED RINGERS 1,000 ML IV SCH (09:18)
[2022-04-19] MEDS: amLODIPine 10 MG TABLET PO SCH (09:34)
[2022-04-19] MEDS: predniSONE 5 MG TABLET PO SCH (09:34)
[2022-04-19] MEDS: CETIRIZINE 10 MG TABLET PO SCH (09:34)
[2022-04-19] MEDS: VENLAFAXINE XR 75 MG CAPSULE PO SCH (09:34)
[2022-04-19] MEDS: DOCUSATE SODIUM 100 MG CAPSULE PO SCH ×2 (09:34→21:26)
[2022-04-19] MEDS: ASPIRIN CHEW 81 MG TABLET PO SCH (09:34)
[2022-04-19] MEDS: HydrOXYzine PAMOATE 25 MG CAPSULE PO SCH ×2 (09:34→21:25)
[2022-04-19] MEDS: POLYETHYLENE GLYCOL POWDER 17 GM PACK PO SCH (09:35)
[2022-04-19] MEDS: PANTOPRAZOLE 40 MG VIAL IV SCH ×2 (09:35→21:26)
[2022-04-19] MEDS: LIDOCAINE 5% PATCH TRANSDERM SCH (09:35)
[2022-04-19] MEDS: VENLAFAXINE XR 37.5 MG CAPSULE PO SCH (15:49)
[2022-04-19] MEDS ORDERED: DEXTROSE 50% 25 GM/50 ML VIAL IV PRN (18:34)
[2022-04-19] MEDS: MORPHINE 2 MG/1 ML SYRINGE IV PRN (19:27)
[2022-04-19] MEDS: MIRTAZAPINE 15 MG TABLET PO SCH (21:25)
[2022-04-19] MEDS: FINASTERIDE 5 MG TABLET PO SCH (21:26)
[2022-04-19] MEDS: ROSUVASTATIN 10 MG TABLET PO SCH (21:26)
[2022-04-19] MEDS: TAMSULOSIN 0.4 MG CAPSULE PO SCH (21:26)
[2022-04-20] MEDS: INSULIN REGULAR 100 UNIT/ML SUBCUT SCH ×4 (00:53→18:14)
[2022-04-20] MEDS: ALBUTEROL/IPRATROPIUM 3 ML NEB RESP TX SCH ×4 (01:08→19:29)
[2022-04-20] MEDS: AMPICILLIN/SULBACTAM 1,500 MG in SODIUM CHLORIDE 0.9% 100 ML IV SCH ×4 (04:36→20:45)
[2022-04-20] MEDS: methylPREDNISolone SOD SUC 40 MG/1 ML VIAL IV SCH ×3 (05:46→20:45)
[2022-04-20] MEDS: SODIUM CHLORIDE 0.9% 1,000 ML IV SCH ×3 (05:46→23:44)
[2022-04-20 06:29] LABS: Basophils % 0.1 % (0.0-0.8); Hematocrit 39.1 VOL% (42.0-52.0); Hemoglobin 12.5 GM/DL (14.0-18.0); Immature Granulocytes % 0.6 %; Immature Granulocytes Absolute 0.07 #; Lymphocytes # 0.9 10*3/uL (1.4-4.0); Lymphocytes % 7.4 % (21.2-54.2); Mean Corpuscular Volume 88.9 FL (87-102); Monocytes # 0.6 10*3/uL (0.11-0.8); Monocytes % 4.9 % (1.7-12.7); Red Cell Distribution Width 18.7 % (9.3-17.3); White Blood Count 12.4 T/CUMM (4-12)
[2022-04-20 06:30] LABS: Platelet Count 131 T/CUMM (130-400)
[2022-04-20 07:00] LABS: Calcium 8.6 MG/DL (8.5-10.1); Osmolality,Calculated 283.1 MOS/KG (273-304); Potassium 3.7 MMOL/L (3.5-5.1)
[2022-04-20] MEDS: carvediloL 6.25 MG TABLET PO SCH ×2 (08:30→17:19)
[2022-04-20] MEDS: VENLAFAXINE XR 75 MG CAPSULE PO SCH (09:53)
[2022-04-20] MEDS: ASPIRIN CHEW 81 MG TABLET PO SCH (09:53)
[2022-04-20] MEDS: DOCUSATE SODIUM 100 MG CAPSULE PO SCH ×2 (09:53→20:51)
[2022-04-20] MEDS: HydrOXYzine PAMOATE 25 MG CAPSULE PO SCH ×2 (09:53→20:45)
[2022-04-20] MEDS: CETIRIZINE 10 MG TABLET PO SCH (09:53)
[2022-04-20] MEDS: POLYETHYLENE GLYCOL POWDER 17 GM PACK PO SCH (09:53)
[2022-04-20] MEDS: amLODIPine 10 MG TABLET PO SCH (09:53)
[2022-04-20] MEDS: LIDOCAINE 5% PATCH TRANSDERM SCH (09:54)
[2022-04-20] MEDS: PANTOPRAZOLE 40 MG VIAL IV SCH ×2 (09:55→20:45)
[2022-04-20] MEDS: predniSONE 5 MG TABLET PO SCH (09:56)
[2022-04-20] MEDS: VENLAFAXINE XR 37.5 MG CAPSULE PO SCH (15:33)
[2022-04-20] MEDS: TAMSULOSIN 0.4 MG CAPSULE PO SCH (20:45)
[2022-04-20] MEDS: FINASTERIDE 5 MG TABLET PO SCH (20:45)
[2022-04-20] MEDS: ROSUVASTATIN 10 MG TABLET PO SCH (20:45)
[2022-04-20] MEDS: MIRTAZAPINE 15 MG TABLET PO SCH (20:45)
[2022-04-21] MEDS: INSULIN REGULAR 100 UNIT/ML SUBCUT SCH ×3 (00:57→11:35)
[2022-04-21] MEDS: AMPICILLIN/SULBACTAM 1,500 MG in SODIUM CHLORIDE 0.9% 100 ML IV SCH ×3 (03:36→14:38)
[2022-04-21] MEDS: methylPREDNISolone SOD SUC 40 MG/1 ML VIAL IV SCH ×2 (05:29→12:16)
[2022-04-21 06:45] LABS: Calcium 8.6 MG/DL (8.5-10.1); Osmolality,Calculated 283.1 MOS/KG (273-304); Potassium 3.5 MMOL/L (3.5-5.1)
[2022-04-21] MEDS: ALBUTEROL/IPRATROPIUM 3 ML NEB RESP TX SCH ×3 (06:59→13:32)
[2022-04-21] MEDS: SODIUM CHLORIDE 0.9% 1,000 ML IV SCH ×3 (07:26→13:05)
[2022-04-21] MEDS: ASPIRIN CHEW 81 MG TABLET PO SCH (08:33)
[2022-04-21] MEDS: carvediloL 6.25 MG TABLET PO SCH (08:34)
[2022-04-21] MEDS: CETIRIZINE 10 MG TABLET PO SCH (08:34)
[2022-04-21] MEDS: HydrOXYzine PAMOATE 25 MG CAPSULE PO SCH (08:34)
[2022-04-21] MEDS: predniSONE 5 MG TABLET PO SCH (08:34)
[2022-04-21] MEDS: VENLAFAXINE XR 75 MG CAPSULE PO SCH (08:34)
[2022-04-21] MEDS: amLODIPine 10 MG TABLET PO SCH (08:34)
[2022-04-21] MEDS: PANTOPRAZOLE 40 MG VIAL IV SCH (08:35)
[2022-04-21] MEDS: LIDOCAINE 5% PATCH TRANSDERM SCH (08:37)
[2022-04-21] MEDS: POLYETHYLENE GLYCOL POWDER 17 GM PACK PO SCH (08:37)
[2022-04-21] MEDS: DOCUSATE SODIUM 100 MG CAPSULE PO SCH (08:37)
[2022-04-21] MEDS: MORPHINE 2 MG/1 ML SYRINGE IV PRN (13:43)
[2022-04-21] MEDS: VENLAFAXINE XR 37.5 MG CAPSULE PO SCH (14:37)
[2022-04-21 15:36] VITALS: BP 147/99
== END 2022-04-21 16:04 | DRG 143 ==
LOC: EDBD → EDUNIT# → N.EDINP 04:49 → N.ED 04:49 → N.5E 11:21
PROVIDERS: ADMIT Internal Medicine; ATTEND Internal Medicine

== ENCOUNTER 2022-07-28 13:53 | Observation (INO) ==
[2022-07-28] MEDS ORDERED: PANTOPRAZOLE 40 MG VIAL IV STA (14:07)
[2022-07-28] MEDS ORDERED: SODIUM CHLORIDE 0.9% 500 ML IV STA (14:07)
[2022-07-28] MEDS ORDERED: ONDANSETRON 4 MG/2 ML VIAL IV STA (14:07)
[2022-07-28] MEDS ORDERED: HYDROmorphone 1 MG/1 ML SYRINGE IV STA ×2 (14:17→16:51)
[2022-07-28 15:58] LABS: Basophils % 0.2 % (0.0-0.8); Eosinophils % 0.2 % (0.00-10.9); Hematocrit 45.5 VOL% (42.0-52.0); Immature Granulocytes % 0.6 %; Immature Granulocytes Absolute 0.07 #; Lymphocytes # 0.8 10*3/uL (1.4-4.0); Lymphocytes % 7.6 % (21.2-54.2); Mean Corpuscular Volume 91.7 FL (87-102); Mean Platelet Volume 11.7 FL (9.6-12.0); Monocytes # 0.6 10*3/uL (0.11-0.8); Monocytes % 5.6 % (1.7-12.7); NRBC # 0.02 10*3/uL; Neutrophils % 85.8 % (38.7-73.9); Platelet Count 178 T/CUMM (130-400); Red Blood Count 4.96 MC/CUMM (3.8-5.5); Red Cell Distribution Width 14.1 % (9.3-17.3); White Blood Count 11.1 T/CUMM (4-12)
[2022-07-28 16:03] LABS: Albumin 3.6 G/DL (3.4-5.0); Bilirubin,Total 0.4 MG/DL (0.20-1.00); Calcium 8.8 MG/DL (8.5-10.1); Osmolality,Calculated 284.5 MOS/KG (273-304); Potassium 4.4 MMOL/L (3.5-5.1); Total Protein 6.6 G/DL (6.4-8.2)
[2022-07-28 16:13] LABS: PT Patient Result 10.6 SECS (10.1-12.1); Partial Thromboplastin Time 24.4 SECS (23.7-32.9)
[2022-07-28 16:23] LABS: Eosinophils 1 % (0-10); Lymphocytes 7 % (20-55); Total Cells Counted 100
[2022-07-28 16:24] LABS: Platelet Estimate Normal
[2022-07-28] MEDS ORDERED: CLONIDINE HCL 0.1 MG PO PRN (20:26)
[2022-07-28] MEDS ORDERED: ACETAMINOPHEN 500 MG TABLET PO PRN (20:26)
[2022-07-28] MEDS ORDERED: MAGNESIUM HYDROXIDE SUSP 30 ML UDCUP PO PRN (20:26)
[2022-07-28] MEDS ORDERED: ALBUTEROL/IPRATROPIUM 3 ML NEB RESP TX PRN (20:26)
[2022-07-28] MEDS: carvediloL 6.25 MG TABLET PO SCH (21:49)
[2022-07-29] MEDS: FINASTERIDE 5 MG TABLET PO SCH ×2 (01:03→20:20)
[2022-07-29] MEDS: IRON (CARBONYL)/VIT C/B12/FA TABLET PO SCH ×3 (01:03→20:20)
[2022-07-29] MEDS: GABAPENTIN 300 MG CAPSULE PO SCH ×3 (01:03→20:20)
[2022-07-29] MEDS: ROSUVASTATIN 10 MG TABLET PO SCH ×2 (01:04→20:20)
[2022-07-29] MEDS: HydrOXYzine PAMOATE 25 MG CAPSULE PO SCH ×3 (01:04→20:20)
[2022-07-29] MEDS: DOCUSATE SODIUM 100 MG CAPSULE PO SCH ×3 (01:04→20:20)
[2022-07-29] MEDS: MIRTAZAPINE 15 MG TABLET PO SCH ×2 (01:04→20:20)
[2022-07-29] MEDS: TAMSULOSIN 0.4 MG CAPSULE PO SCH ×2 (01:08→20:20)
[2022-07-29] MEDS ORDERED: PANTOPRAZOLE 40 MG TABLET PO SCH (09:00)
[2022-07-29] MEDS ORDERED: ONDANSETRON 4 MG TABLET PO PRN (11:06)
[2022-07-29] MEDS ORDERED: MORPHINE 2 MG/1 ML SYRINGE IV PRN (11:07)
[2022-07-29] MEDS ORDERED: ONDANSETRON 4 MG/2 ML VIAL IV ONE (12:16)
[2022-07-29] MEDS ORDERED: ONDANSETRON 4 MG/2 ML VIAL ONE (12:17)
[2022-07-29] MEDS ORDERED: ETOMIDATE 20 MG/10 ML VIAL IV ONE (12:40)
[2022-07-29] MEDS ORDERED: propofoL 200 MG/20 ML VIAL IV ONE (12:40)
[2022-07-29] MEDS ORDERED: LIDOCAINE 2% 5 ML VIAL ONE (12:40)
[2022-07-29] MEDS: VENLAFAXINE XR 75 MG CAPSULE PO SCH (14:41)
[2022-07-29] MEDS: LIDOCAINE 5% PATCH TRANSDERM SCH (14:41)
[2022-07-29] MEDS: carvediloL 6.25 MG TABLET PO SCH ×2 (14:41→20:20)
[2022-07-29] MEDS: POLYETHYLENE GLYCOL POWDER 17 GM PACK PO SCH (14:42)
[2022-07-29] MEDS: amLODIPine 10 MG TABLET PO SCH (14:42)
[2022-07-29] MEDS: predniSONE 5 MG TABLET PO SCH (14:42)
[2022-07-29] MEDS: [UNRECOGNIZED DRUG - OTHER] PO SCH (14:43)
[2022-07-29] MEDS: PROTEIN HYDROLYSATE MILK PO SCH (14:43)
[2022-07-29] MEDS: CETIRIZINE 10 MG TABLET PO SCH (14:43)
[2022-07-29] MEDS: ONDANSETRON 4 MG/2 ML VIAL IV PRN (19:27)
[2022-07-29] MEDS: traMADol 50 MG TABLET PO PRN (19:27)
[2022-07-29] MEDS: PANTOPRAZOLE 40 MG VIAL IV SCH (20:29)
[2022-07-29] MEDS: SODIUM CHLORIDE 0.9% 1,000 ML IV SCH (20:31)
[2022-07-30 05:34] LABS: Basophils % 0.2 % (0.0-0.8); Eosinophils % 0.1 % (0.00-10.9); Hematocrit 44.6 VOL% (42.0-52.0); Hemoglobin 14.2 GM/DL (14.0-18.0); Immature Granulocytes % 0.4 %; Immature Granulocytes Absolute 0.05 #; Lymphocytes # 1.3 10*3/uL (1.4-4.0); Lymphocytes % 10.4 % (21.2-54.2); Mean Corpuscular HGB Conc 31.8 GM/DL (32-36); Mean Corpuscular Volume 94.3 FL (87-102); Mean Platelet Volume 12.7 FL (9.6-12.0); Neutrophils % 80.9 % (38.7-73.9); Platelet Count 142 T/CUMM (130-400); Red Blood Count 4.73 MC/CUMM (3.8-5.5); Red Cell Distribution Width 14.1 % (9.3-17.3); White Blood Count 12.8 T/CUMM (4-12)
[2022-07-30 05:56] LABS: Osmolality,Calculated 278.8 MOS/KG (273-304); Potassium 3.6 MMOL/L (3.5-5.1); Risk Ratio 2.67; VLDL Cholesterol 22.4 MG/DL
[2022-07-30] MEDS: DOCUSATE SODIUM 100 MG CAPSULE PO SCH ×2 (09:09→20:46)
[2022-07-30] MEDS: carvediloL 6.25 MG TABLET PO SCH ×2 (09:09→20:47)
[2022-07-30] MEDS: GABAPENTIN 300 MG CAPSULE PO SCH ×2 (09:09→20:46)
[2022-07-30] MEDS: POLYETHYLENE GLYCOL POWDER 17 GM PACK PO SCH (09:09)
[2022-07-30] MEDS: LIDOCAINE 5% PATCH TRANSDERM SCH (09:09)
[2022-07-30] MEDS: amLODIPine 10 MG TABLET PO SCH (09:09)
[2022-07-30] MEDS: VENLAFAXINE XR 75 MG CAPSULE PO SCH (09:09)
[2022-07-30] MEDS: HydrOXYzine PAMOATE 25 MG CAPSULE PO SCH ×2 (09:09→20:46)
[2022-07-30] MEDS: CETIRIZINE 10 MG TABLET PO SCH (09:09)
[2022-07-30] MEDS: PANTOPRAZOLE 40 MG VIAL IV SCH ×2 (09:10→20:47)
[2022-07-30] MEDS: predniSONE 5 MG TABLET PO SCH (09:11)
[2022-07-30] MEDS: IRON (CARBONYL)/VIT C/B12/FA TABLET PO SCH ×2 (09:11→20:46)
[2022-07-30] MEDS: PROTEIN HYDROLYSATE MILK PO SCH (09:11)
[2022-07-30] MEDS: [UNRECOGNIZED DRUG - OTHER] PO SCH (09:11)
[2022-07-30] MEDS: SODIUM CHLORIDE 0.9% 1,000 ML IV SCH (13:12)
[2022-07-30] MEDS ORDERED: BISACODYL 5 MG TABLET PO ONE (15:29)
[2022-07-30] MEDS: ROSUVASTATIN 10 MG TABLET PO SCH (20:46)
[2022-07-30] MEDS: TAMSULOSIN 0.4 MG CAPSULE PO SCH (20:46)
[2022-07-30] MEDS: FINASTERIDE 5 MG TABLET PO SCH (20:46)
[2022-07-30] MEDS: ONDANSETRON 4 MG/2 ML VIAL IV PRN (20:47)
[2022-07-30] MEDS: MIRTAZAPINE 15 MG TABLET PO SCH (20:47)
[2022-07-30] MEDS: traMADol 50 MG TABLET PO PRN (22:46)
[2022-07-31 07:02] LABS: Basophils % 0.3 % (0.0-0.8); Eosinophils # 0.1 10*3/uL (0.0-0.87); Eosinophils % 1.1 % (0.00-10.9); Hematocrit 43.6 VOL% (42.0-52.0); Hemoglobin 13.8 GM/DL (14.0-18.0); Immature Granulocytes % 0.3 %; Immature Granulocytes Absolute 0.02 #; Lymphocytes # 1.1 10*3/uL (1.4-4.0); Lymphocytes % 14.4 % (21.2-54.2); Mean Corpuscular HGB Conc 31.7 GM/DL (32-36); Mean Corpuscular Volume 92.8 FL (87-102); Mean Platelet Volume 12.7 FL (9.6-12.0); Monocytes % 13.2 % (1.7-12.7); Neutrophils % 70.7 % (38.7-73.9); Platelet Count 130 T/CUMM (130-400); Red Cell Distribution Width 13.7 % (9.3-17.3); White Blood Count 7.4 T/CUMM (4-12)
[2022-07-31 07:23] LABS: Osmolality,Calculated 283.3 MOS/KG (273-304)
[2022-07-31] MEDS: DOCUSATE SODIUM 100 MG CAPSULE PO SCH (09:16)
[2022-07-31] MEDS: VENLAFAXINE XR 75 MG CAPSULE PO SCH (09:16)
[2022-07-31] MEDS: IRON (CARBONYL)/VIT C/B12/FA TABLET PO SCH (09:16)
[2022-07-31] MEDS: POLYETHYLENE GLYCOL POWDER 17 GM PACK PO SCH (09:17)
[2022-07-31] MEDS: CETIRIZINE 10 MG TABLET PO SCH (09:17)
[2022-07-31] MEDS: GABAPENTIN 300 MG CAPSULE PO SCH (09:18)
[2022-07-31] MEDS: carvediloL 6.25 MG TABLET PO SCH ×2 (09:18→16:32)
[2022-07-31] MEDS: predniSONE 5 MG TABLET PO SCH (09:18)
[2022-07-31] MEDS: HydrOXYzine PAMOATE 25 MG CAPSULE PO SCH (09:19)
[2022-07-31] MEDS: PANTOPRAZOLE 40 MG VIAL IV SCH (09:22)
[2022-07-31] MEDS: [UNRECOGNIZED DRUG - OTHER] PO SCH (09:23)
[2022-07-31] MEDS: PROTEIN HYDROLYSATE MILK PO SCH (09:23)
[2022-07-31] MEDS: LIDOCAINE 5% PATCH TRANSDERM SCH (09:23)
[2022-07-31] MEDS ORDERED: POTASSIUM CHLORIDE 20 MEQ TABLET PO ONE (15:11)
[2022-07-31 15:33] VITALS: BP 146/97
[2022-07-31] MEDS: SODIUM CHLORIDE 0.9% 1,000 ML IV SCH (16:51)
== END 2022-07-31 18:47 ==
LOC: N.EDINP 13:53 → N.ED 13:53 → N.EDINP 18:18 → INTOOBSV 18:18 → N.3E 18:47 → N.ED 19:15 → OBSVTOIN 20:26 → N.3E 07-29 07:46
PROVIDERS: ADMIT Internal Medicine; ATTEND Internal Medicine